=== PATIENT | female | born 1980 | race Caucasian/White ===

== ENCOUNTER → 2019-06-30 | Outpatient (CLI) | payer OTHER | END | disposition home or self-care (01) | LOC: CFH 07:49 | PROVIDERS: ATTEND Nurse Practitioner | DX: N63.10 Unspecified lump in the right breast, unspecified quadrant (principal); R92.2 Inconclusive mammogram | CPT/HCPCS: 76642; 77066; G0279 ==

== ENCOUNTER → 2019-07-08 | Outpatient (CLI) | payer OTHER ==
[~2019-07-08] MED LIST: GADOTERATE 10 MMOL/20 ML SYR ONE
== END | disposition home or self-care (01) ==
LOC: CFH 13:45
PROVIDERS: ATTEND Nurse Practitioner
DX: N63.41 Unspecified lump in right breast, subareolar (principal)
CPT/HCPCS: 77049; A9575; C8908

== ENCOUNTER 2019-07-10 07:39 | Outpatient (CLI) | payer OTHER ==
[2019-07-10] MEDS ORDERED: LIDOCAINE 1%, 20ML ONE (08:00)
[2019-07-10] MEDS ORDERED: LIDOCAINE 1%-EPI 1:100K, 20ML ONE (08:00)
[2019-07-10] MEDS ORDERED: SODIUM BICARBONATE 4.2%, 5ML ONE (08:00)
== END 2019-07-10 23:59 | disposition home or self-care (01) ==
LOC: CFH 07:39
PROVIDERS: ATTEND Nurse Practitioner
DX: N63.10 Unspecified lump in the right breast, unspecified quadrant (principal); C50.811 Malignant neoplasm of overlapping sites of right female breast; Z17.0 Estrogen receptor positive status [ER+]
CPT/HCPCS: 19083; 77065; 88305; 88360; J3490; 19285; 88361; 88374

== ENCOUNTER → 2019-07-30 | Outpatient (CLI) | payer OTHER ==
[~2019-07-30] MED LIST changes: +FLUT9.9S NS; -GADOTERATE 10 MMOL/20 ML SYR ONE; +LANS15CA PO; +LORA10CA PO; +PSEU120T9 PO
[2019-07-30 16:09] LABS: BASOPHILS # (AUTO) 0.06 x10^3/uL (0-0.1); BASOPHILS % (AUTO) 1 % (0-1); EOSINOPHILS # (AUTO) 0.16 x10^3/uL (0-0.4); EOSINOPHILS % (AUTO) 2 % (1-7); LYMPHOCYTES # (AUTO) 1.72 x10^3/uL (1-3.4); LYMPHOCYTES % (AUTO) 23 % (22-44); MD NO; MEAN CORPUSCULAR HGB CONC 33.6 g/dL (32.4-35.8); MEAN CORPUSCULAR VOLUME 92.4 fL (80-100); MEAN PLATELET VOLUME 8.7 fL (7.4-10.4); MONOCYTES # (AUTO) 0.57 x10^3/uL (0.2-0.8); MONOCYTES % (AUTO) 8 % (2-9); NEUTROPHILS # (AUTO) 4.97 x10^3/uL (1.8-6.8); NEUTROPHILS % (AUTO) 66 % (42-75); PLATELET COUNT 271 x10^3/uL (130-400); RED BLOOD COUNT 4.36 x10^6/uL (3.82-5.3); RED CELL DISTRIBUTION WIDTH 13.2 % (9.6-15.2)
== END | disposition home or self-care (01) ==
LOC: STAR 15:20
PROVIDERS: ATTEND Surgery
DX: Z01.812 Encounter for preprocedural laboratory examination (principal); C50.811 Malignant neoplasm of overlapping sites of right female breast
CPT/HCPCS: 36415; 84703; 85025

== ENCOUNTER 2019-08-07 13:41 | Day surgery (SDC) | payer OTHER ==
[~2019-08-07] VITALS: Ht 165.1 cm; Wt 89.6 kg
[2019-08-07] MEDS ORDERED: LACTATED RINGERS 1,000 ML IV SCH ×3 (14:08→21:00)
[2019-08-07] MEDS ORDERED: ACETAMINOPHEN 500 MG TABLET ONE (14:27)
[2019-08-07] MEDS ORDERED: GABAPENTIN 300 MG CAPSULE ONE (14:28)
[2019-08-07] MEDS ORDERED: CHLORHEXIDINE 15 ML UDC ONE (14:28)
[2019-08-07] MEDS ORDERED: ACETAMINOPHEN 500 MG TABLET PO ONE (14:30)
[2019-08-07] MEDS ORDERED: CHLORHEXIDINE 15 ML UDC MM ONE (14:30)
[2019-08-07] MEDS ORDERED: GABAPENTIN 300 MG CAPSULE PO ONE (14:30)
[2019-08-07] MEDS ORDERED: MIDAZOLAM 1 MG/ML, 2ML ONE (15:44)
[2019-08-07] MEDS ORDERED: FENTANYL PF 250 MCG/5ML ONE ×2 (15:44→17:06)
[2019-08-07] MEDS ORDERED: HALOPERIDOL 5 MG/ML IV PRN (16:00)
[2019-08-07] MEDS ORDERED: METHOCARBAMOL 1,000 MG in DEXTROSE 5% 100 ML IV PRN (16:00)
[2019-08-07] MEDS ORDERED: hydrALAzine 20 MG/ML, 1ML IV PRN (16:00)
[2019-08-07] MEDS ORDERED: DIPHENHYDRAMINE 50 MG/ML, 1ML IVPush PRN (16:00)
[2019-08-07] MEDS ORDERED: MEPERIDINE/PF 25MG/0.5ML IVPush PRN (16:00)
[2019-08-07] MEDS ORDERED: OXYcodone 5 MG/5 ML ORAL.SOL UDC PO PRN (16:00)
[2019-08-07] MEDS ORDERED: DIAZEPAM 5 MG/ML, 2ML IVPush PRN (16:00)
[2019-08-07] MEDS ORDERED: FENTANYL PF 100 MCG/2ML IV PRN (16:00)
[2019-08-07] MEDS ORDERED: ONDANSETRON 2MG/ML, 2ML IVPush PRN ×2 (16:00→21:00)
[2019-08-07] MEDS ORDERED: LABETALOL 5MG/ML, 20ML IV PRN (16:00)
[2019-08-07] MEDS ORDERED: BACITRACIN 50,000 UNIT ONE (16:15)
[2019-08-07] MEDS ORDERED: CEFAZOLIN 1,000 MG ONE (16:15)
[2019-08-07] MEDS ORDERED: BUPIVACAINE/PF-EPI 0.5% 1:200K ONE (16:15)
[2019-08-07] MEDS ORDERED: GENTAMICIN 80 MG/2 ML ONE (16:15)
[2019-08-07] MEDS ORDERED: PROPOFOL 10 MG/ML, 20ML ONE (16:40)
[2019-08-07] MEDS ORDERED: DEXAMETHASONE 4 MG/ML, 1ML ONE (16:40)
[2019-08-07] MEDS ORDERED: ONDANSETRON 2MG/ML, 2ML ONE (16:40)
[2019-08-07] MEDS ORDERED: SUCCINYLCHOLINE 20 MG/ML, 10ML ONE (16:40)
[2019-08-07] MEDS ORDERED: ROCURONIUM 10MG/ML,5ML ONE (16:40)
[2019-08-07] MEDS ORDERED: FENTANYL PF 100 MCG/2ML ONE ×3 (17:46→18:47)
[2019-08-07] MEDS ORDERED: HYDROmorphone 1 MG/ML, 1ML INJ ONE (18:47)
[2019-08-07] MEDS ORDERED: OXYcodone 5 MG/5 ML ORAL.SOL UDC ONE (18:47)
[2019-08-07] MEDS: HYDROmorphone 1 MG/ML, 1ML INJ IVPush PRN ×2 (18:57→19:22)
[2019-08-07] MEDS ORDERED: MORPHINE SULFATE 4 MG/ML, 1ML IVPush PRN (21:00)
== END 2019-08-07 21:51 | disposition home or self-care (01) ==
LOC: SDC 13:41 → EDSTATUS 15:00 → 4NE 19:57 → SDC 21:51
PROVIDERS: ATTEND Surgery
DX: C50.411 Malignant neoplasm of upper-outer quadrant of right female breast (principal); Z11.59 Encounter for screening for other viral diseases; N65.1 Disproportion of reconstructed breast; K21.9 Gastro-esophageal reflux disease without esophagitis; E66.9 Obesity, unspecified; Z68.32 Body mass index [BMI] 32.0-32.9, adult; Z17.0 Estrogen receptor positive status [ER+]; Z79.899 Other long term (current) drug therapy; Z87.891 Personal history of nicotine dependence
CPT/HCPCS: 15570; 19301; 19316; 19318; 38525; 38792; 38900; 76098; 81025; 88305; 88307; 88329; A9541; C1729; J0330; J0690; J1100; J1170; J1580; J2250; J2405; J2704; J3010; J7120; U0001; G0378

== ENCOUNTER 2019-08-21 07:29 | Outpatient (CLI) | payer OTHER | END 2019-08-21 23:59 | disposition home or self-care (01) | LOC: ROC 07:29 | PROVIDERS: ATTEND Radiology Radiation Oncology | DX: C50.411 Malignant neoplasm of upper-outer quadrant of right female breast (principal); K21.9 Gastro-esophageal reflux disease without esophagitis; E66.9 Obesity, unspecified; Z68.32 Body mass index [BMI] 32.0-32.9, adult; Z17.0 Estrogen receptor positive status [ER+]; Z79.899 Other long term (current) drug therapy; Z87.891 Personal history of nicotine dependence | CPT/HCPCS: 99214; G0463 ==

== ENCOUNTER → 2019-11-27 | Outpatient (CLI) | payer OTHER | END | disposition home or self-care (01) | LOC: CFH 15:05 | PROVIDERS: ATTEND Radiology Radiation Oncology | DX: C50.411 Malignant neoplasm of upper-outer quadrant of right female breast (principal); N64.4 Mastodynia | CPT/HCPCS: 76642 ==

== ENCOUNTER 2019-12-02 07:37 | Outpatient (CLI) | payer OTHER | END 2019-12-02 23:59 | disposition home or self-care (01) | LOC: ROC 07:37 | PROVIDERS: ATTEND Radiology Radiation Oncology | DX: C50.411 Malignant neoplasm of upper-outer quadrant of right female breast (principal); N64.4 Mastodynia | CPT/HCPCS: 99213; G0463 ==

== ENCOUNTER → 2020-07-04 | Outpatient (CLI) | payer OTHER | END | disposition home or self-care (01) | LOC: CFH 09:59 | PROVIDERS: ATTEND Internal Medicine Hematology & Oncology | DX: Z12.31 Encounter for screening mammogram for malignant neoplasm of breast (principal); Z12.39 Encounter for other screening for malignant neoplasm of breast; C50.811 Malignant neoplasm of overlapping sites of right female breast | CPT/HCPCS: 76641; 77063; 77067 ==